=== PATIENT | female | born 1960 | race Caucasian/White ===

== ENCOUNTER 2024-08-26 08:24 | Outpatient (RCR) | payer BC, SELFPAY ==
--- NOTE | 2024-08-10 08:45 | RT.EKG_ITS ---
APPROVED REPORT Exam: Resting ECG Reason for Exam: cardiac rehab intake Patient Location: O HR:55 bpm ECG Measurements Heart Rate 55 AXIS DE 154 P 41 QRSd 84 QRS 9 QT 450 T 90 QTc 431 Conclusion Sinus rhythm...normal P axis, V-rate 50- 99 Probable left atrial enlargement...P >50mS, <-0.10mV V1 Low voltage, precordial leads...precordial leads <1.0mV Nonspecific T abnrm, anterolateral leads...T <-0.10mV, I aVL V2-V6
== END 2024-08-29 23:59 | disposition home or self-care (01) ==
LOC: CR 08:24
PROVIDERS: Visit Provider Internal Medicine Cardiovascular Disease
DX: I21.4 Non-ST elevation (NSTEMI) myocardial infarction (principal); Z51.89 Encounter for other specified aftercare
CPT/HCPCS: S9472

== ENCOUNTER 2024-09-28 08:06 | Outpatient (RCR) | payer BC, SELFPAY | END 2024-09-29 23:59 | disposition home or self-care (01) | LOC: CR 08:06 | PROVIDERS: PCP Nurse Practitioner Family; Visit Provider Internal Medicine Cardiovascular Disease | DX: I21.4 Non-ST elevation (NSTEMI) myocardial infarction (principal); Z51.89 Encounter for other specified aftercare | CPT/HCPCS: S9472 ==

== ENCOUNTER 2024-10-30 08:24 | Outpatient (RCR) | payer BC, SELFPAY | END 2024-10-30 23:59 | disposition home or self-care (01) | LOC: CR 08:24 | PROVIDERS: PCP Nurse Practitioner Family; Visit Provider Internal Medicine Cardiovascular Disease | DX: I21.A1 Myocardial infarction type 2 (principal); Z51.89 Encounter for other specified aftercare | CPT/HCPCS: S9472 ==

== ENCOUNTER 2024-11-03 00:24 | Outpatient (CLI) | payer BC, SELFPAY ==
--- NOTE | 2024-11-03 06:00 | DI.CTLCSR_ITS ---
Exam(s) CT CHEST LUNG CANCER SCREEN EXAM: CT CHEST LUNG CANCER SCREEN CLINICAL HISTORY: Screening for lung cancer,former tobacco use,z87.891 TECHNIQUE: Imaging Protocol: Axial computed tomography images with coronal and sagittal reformatted images were created and reviewed. Low dose screening protocol. COMPARISON: No exams were available for comparison FINDINGS: Tracheobronchial tree: No bronchiectasis or mucus plugging. Mediastinum and Rachelle: No dominant adenopathy or fluid collection. Pulmonary parenchyma: No consolidation or dominant measurable mass. Mild emphysematous changes at the lung apices. Apical scarring. No significant interstitial changes. Lung Nodules: None. Pleura: No effusion. No pneumothorax. Heart: The heart is not dilated. No coronary artery calcifications are seen. No pericardial effusion. Aorta: Thoracic aorta non-dilated. Upper abdomen: Unremarkable. Bones: Unremarkable for age. Soft Tissues: Unremarkable. IMPRESSION: No suspicious pulmonary nodules. Lung RADS Cat 1 - Negative: No nodules and definitely benign nodules Lung-RADS 1.0 CATEGORIES: Category 0 - Prior chest CT exam(s) being located for comparison. Category 1 - Annual screening in 12 months. No nodules or definitely benign nodules. Category 2 - Annual screening in 12 months. Benign appearance. Nodules with low likelihood of becomin g active cancer. Category 3 - 6-month follow-up. Probably benign. Short-term follow-up suggested. Nodules with low lik elihood of becoming active cancer. Category 4A - 3-month follow-up and CT/PET if >8 mm in size. Suspicious finding. Findings which requi re additional testing. Category 4B - Findings which require additional testing and tissue sampling. Category 4X - Category 3 or 4 nodules with additional features or imaging findings that increases the suspicion of malignancy. Modifier S- Potentially clinically significant findings (non lung cancer) RADIATION DOSE DELIVERED: !Error Total DLP DATA REPOSITORY: All CT scans at this facility are submitted to the National Radiology Data Registry (NRDR) Dose Index Registry (DIR) with the [employer] (ACR). RADIATION OPTIMIZATION: All CT scans at this facility use at least one of these dose optimization te chniques: automated exposure control; mA and/or kV adjustment per patient size (includes targeted exa ms where dose is matched to clinical indication); or iterative reconstruction.
--- NOTE | 2024-11-03 06:00 | DI.MAMMO_ITS ---
Exam(s) MAMMO SCREENING EXAM: MAMMO SCREENING CLINICAL HISTORY: screening,z12.39 TECHNIQUE: Mammograms were interpreted according to the usual protocol including computer analysis w [email or web address] CAD system, tomosynthesis and C-view imaging. COMPARISON: 2015 through 2022 FINDINGS: The breasts are composed of heterogeneously dense fibroglandular densities, Breast Density category C . No suspicious masses or suspicious microcalcifications are seen. No skin thickening or abnormal axillary lymph nodes are seen. There has been no significant change from prior exams. IMPRESSION: BI-RADS Category 1, Negative mammogram. Yearly screening mammography is recommended. Breast Density Category C, heterogeneously Dense. The mammogram demonstrates the patient's breast tissue is dense. Dense breast tissue is very common a nd is not abnormal but dense breast tissue can make it harder to find cancer on a mammogram. Also, de nse breast tissue may increase breast cancer risk. This information about the result of the mammogram report was provided to the patient to raise their awareness. Use this report when you speak with the patient about their risks for breast cancer, which includes their family history. At that time, you may recommend additional screening tests (Ultrasound or MRI) as they might be useful based on their r isk. A negative radiographic report should not delay biopsy if a dominant or clinically suspicious mass is present. Up to ten percent of cancers are not identified on mammography. A negative report may reinforce clinical impression. Adenosis and dense breasts may obscure an underlying neoplasm. False positive reports average 6 to 10%.
== END 2024-11-03 00:44 ==
PROVIDERS: PCP Nurse Practitioner Family; Visit Provider Nurse Practitioner Family
DX: Z12.31 Encounter for screening mammogram for malignant neoplasm of breast (principal); Z87.891 Personal history of nicotine dependence; R92.333 Mammographic heterogeneous density, bilateral breasts
CPT/HCPCS: 71271; 77063; 77067

== ENCOUNTER 2024-11-25 08:10 | Outpatient (RCR) | payer BC, SELFPAY | END 2024-11-27 23:59 | disposition home or self-care (01) | LOC: CR 08:10 | PROVIDERS: PCP Nurse Practitioner Family; Visit Provider Internal Medicine Cardiovascular Disease | DX: I21.A1 Myocardial infarction type 2 (principal); Z51.89 Encounter for other specified aftercare | CPT/HCPCS: S9472 ==

== ENCOUNTER 2024-11-26 03:03 | Outpatient (CLI) | payer BC, SELFPAY ==
[2024-11-26 12:52] LABS: ALT 29 U/L (14-59); AST 20 U/L (15-37); Albumin 4.2 g/dL (3.4-5.0); Alkaline Phosphatase 100 U/L (46-116); Anion Gap 6.4 mmol/L (3-11); BUN 15 mg/dL (7-18); Bilirubin, Total 0.51 mg/dL (0.2-1.0); CO2 28.6 mmol/L (21.0-32.0); CREATININE 0.7 mg/dL (0.55-1.02); Calcium 9.3 mg/dL (8.5-10.1); Calculated LDL 91 mg/dL (<100); Chloride 106 mmol/L (98-107); Cholesterol 177 mg/dL (<200); Estimated GFR 97.72 (mL/min/1.73m2); Glucose 99 mg/dL (74-106); HDL Cholesterol 68 mg/dL (40-60); Potassium 3.9 mmol/L (3.5-5.1); Sodium 141 mmol/L (136-145); Total Protein 7.5 g/dL (6.4-8.2); Triglyceride 92 mg/dL (<150)
[2024-11-27 11:55] LABS: HIV-1/2 Ag & Ab Screen Negative (Negative)
[2024-11-27 12:09] LABS: Hepatitis C Ab w Rflx HCV PCR Negative (Negative)
[2024-11-27 12:16] LABS: HBs Antibody, Quant <3.1 mIU/mL (See Note); Hep B Surface Ab Negative (See Note); Hepatitis B Core Antibody Negative (Negative); Hepatitis B Surface Antigen Negative (Negative)
== END 2024-11-26 03:04 | disposition home or self-care (01) ==
LOC: LOS 03:04
PROVIDERS: PCP Nurse Practitioner Family; Visit Provider Nurse Practitioner Family
DX: Z11.59 Encounter for screening for other viral diseases (principal); E78.5 Hyperlipidemia, unspecified; Z11.4 Encounter for screening for human immunodeficiency virus [HIV]
CPT/HCPCS: 36415; 80053; 80061; 86704; 86706; 86803; 87340; 87389

== ENCOUNTER 2024-12-09 08:04 | Outpatient (RCR) | payer BC, SELFPAY | END 2024-12-28 23:59 | disposition home or self-care (01) | LOC: CR 08:04 | PROVIDERS: PCP Nurse Practitioner Family; Visit Provider Internal Medicine Cardiovascular Disease | DX: I21.A1 Myocardial infarction type 2 (principal); Z51.89 Encounter for other specified aftercare | CPT/HCPCS: S9472 ==

== ENCOUNTER 2025-02-08 07:39 | Day surgery (SDC) | payer BC, SELFPAY ==
--- NOTE | 2025-02-07 07:57 | W.PM.DSUDISC ---
Date of service: 02/08/25 Discharge Plan Disposition Patient Disposition: Home Condition: Good Discharge Details Reason For Visit: screening colonoscopy Attending Provider: Irwin Aguilar Primary Care Provider: Rika Romero Home Meds and New Rx's Prescriptions: New tramadol 50 mg tablet 50 mg PO BID PRNQty: 9 0RF Rx Instructions: Take 1 tablet by mouth up to twice a day if needed for pain. Continued nitroglycerin 0.4 mg tablet, sublingual 0.4 mg sublingual Q5M PRN Rx Instructions: do not exceed 3 doses per episode atorvastatin 40 mg tablet 40 mg PO DAILY Qty: 90 3RF bupropion HCl 150 mg tablet extended release 24 hr 150 mg PO QAM Qty: 90 3RF metoprolol succinate 25 mg tablet extended release 24 hr 25 mg PO DAILY Qty: 90 3RF sertraline 100 mg tablet 100 mg PO DAILY Qty: 90 3RF Discontinued bisacodyl 5 mg tablet,delayed release (DR/EC) 5 mg PO ONCE Qty: 4 0RF Rx Instructions: Per Colonoscopy bowel prep instructions polyethylene glycol 3350 17 gram/dose powder 238 g PO ONCE Qty: 238 0RF Rx Instructions: For Colonoscopy bowel prep, as directed by office Discharge Instructions Instructions: Colon polyps, Hemorrhoid Banding, Diverticulosis Additional Instructions: Marnie I hope you make a quick recovery from the procedure, and they feel well today. I did find, and remove 1 single polyp today. This will be sent off for testing, similar to your previous experience. Once I know the nature of this polyp, I will be in a better position to offer recommendations for future colonoscopies. I also banded 2 of the 3 hemorrhoid columns today. Although banding is generally well-tolerated, sometimes it can be painful. I did prescription for some pain medications if you need it. I also recommend alternating Tylenol and ibuprofen for about 48 hours or so. Many patients also find comfort with topical agents such as Preparation H, or hemorrhoid suppositories. The bands themselves will cause the hemorrhoid blood vessels to clot, and eventually fall off with bowel movements. It is quite common to have some blood with the stools, especially at the time that the bands shed. This is usually described as sometime between 5 and 15 days. Using an wgkq-wdi-swdlcek stool softener over the next week or 2 may also provide some comfort. If you need anything, or have any questions at all, please do not hesitate to call, otherwise we will be in touch once the polyp report is available. 1. If tolerated, consume a soft, low fiber diet for 1-2 days. 2[address] Do not drive, drink alcohol, operate machinery, make critical decisions, or do activities that require coordination or balance for 24 hours. 3. Because air was put into your colon during the procedure, expelling air from your rectum (passing gas or farting) is normal. 4. You may not have a bowel movement for 1-3 days because of the colonoscopy prep. This is normal. 5. Go directly to the emergency room if you notice any of the following: Develop chills (warm to touch), or if you have a thermometer and your temperature is above 101 Difficulty breathing or difficultly swallowing Persistent vomiting Severe abdominal pain, other than gas cramps Severe chest pain Black, tarry stools Any bleeding ? exceeding one tablespoon 6. Call your physician if the site where your intravenous was started becomes red, swollen, painful, and warm to touch. 7. Your physician has reviewed your pre-procedure medications. Please continue to take those medications as previously ordered. You will be given specific information/education regarding any changes to your medications before leaving. Activity:: Activity as Tolerated Diet:: As Tolerated Discharge Orders Discharge Orders: Discharge Order (Routine); Ordered 02/07/25 Ordered By: Irwin Aguilar DS: Diagnosis Discharge Diagnosis (1) Encounter for screening colonoscopy: Status: Acute Asessment and Plan: Follow-up on polypectomy results
--- NOTE | 2025-02-07 07:58 | W.COLOREPORT ---
Date of service: 02/08/25 Time of Service: 09:30 Colonoscopy Report Date of procedure: 02/08/25 Pre-op diagnosis general: screening colonoscopy Post-op diagnosis procedure note: other (Internal hemorrhoids, diverticulosis, colon polyps) Procedure: colonoscopy Surgeon: Irwin Aguilar Anesthesia Type: General:No Airway Estimated blood loss (mL): 5 Pathology: other (0.5 cm flat polyp in the ascending colon) Complications: None Disposition: same day Indications: Marnie is a 64 year old woman with a history of adenomatous polyps. She needs her next screening colonoscopy Prep: Miralax/Dulcolax Procedure Start Time: 08:59 Procedure End Time: 09:20 Retraction Time: 13 Findings: Internal hemorrhoids, sigmoid diverticulosis, 0.5 cm flat ascending colon polyp Procedure Description: After the induction of monitored anesthetic care, and with Marnie in left lateral decubitus position, I began by performing an external anorectal exam.? Perineum and skin were normal, as was the anal verge.? This appeared normal next, I performed a digital rectal exam.? I did not appreciate any abnormal findings.? Next, I advanced a colonoscope into the rectal vault.? I performed retroflexion.? There are internal hemorrhoids in all 3 columns.? Using irrigation, I then advanced the colonoscope beyond the rectal folds and into the sigmoid colon before advancing towards the cecum.?The scope was noted to be in the cecum by identification of the ileocecal valve and appendiceal orifice.? I then began withdrawing the colonoscope using repeated irrigation as necessary for full evaluation of the colonic mucosa. ?Within the ascending colon was a 0.5 cm flat polyp. This was removed with cold snare polypectomy. There was minimal bleeding. Excision was complete. There is sigmoid diverticulosis. Once the scope was withdrawn to the level of the rectum, great care was taken to examine portions of the rectal folds.? The colonoscope was then removed, and using lighted anoscopy, I examined the anal column and internal hemorrhoid complexes. There are hemorrhoids involving all 3 columns, but the dominant hemorrhoids appear to involve the right posterior and left lateral columns. Suction band ligation was performed here. She tolerated the procedure well. The findings and instructions were shared with the patient prior to discharge. [place] Bowel Prep [place] Bowel Prep Right Colon: 3 Left Colon: 2 Transverse Colon: 3 Total Score: 8
--- NOTE | 2025-02-07 18:02 | W.ANESPRE ---
General Info Date of Service Date Performed: 02/08/25 Height: 5 ft 2.75 in Weight: 68.039 kg Body Mass Index (BMI): 26.7 Surgical Procedure: Operation Date: 02/08/25 09:05 Proposed Procedure Side Surgeon p Colonoscopy, possible hemorrhoid banding Irwin Aguilar MD Meds Allergies and Home Medications Allergies Allergy/AdvReac Type Severity Reaction Status Date / Time Penicillins Allergy Mild Swelling/Ed Verified 02/08/25 08:09 sascha Home Medication ?Medication ?Instructions ?Recorded atorvastatin 40 mg tablet 40 mg PO DAILY #90 tabs 10/09/24 bupropion HCl 150 mg 24 hr tablet, 150 mg PO QAM #90 tabs 10/09/24 extended release metoprolol succinate 25 mg 25 mg PO DAILY #90 tabs 10/09/24 tablet,extended release 24 hr nitroglycerin 0.4 mg sublingual 0.4 mg sublingual Q5M PRN 10/09/24 tablet sertraline 100 mg tablet 100 mg PO DAILY #90 tabs 10/09/24 Current Visit Medications: Current Medications Generic Name Dose Route Start Last Admin Trade Name Freq PRN Reason Stop Dose Admin Ringer's Solution 1,000 mls @ 80 mls/hr 02/08/25 06:00 IV 03/07/25 23:59 [facility] IV Miscellaneous Supplies 1 each 02/08/25 06:00 Iv Access IV 03/07/25 23:59 DIRECTED PAULO Ondansetron HCl 4 mg 02/07/25 07:59 Ondansetron 4 Mg/2 Ml Vial IVP 03/09/25 07:58 Q4H PRN PRN Nausea / Vomiting Sodium Chloride 0 ml 02/08/25 06:00 Normal Saline Flush 10 Ml Syr IV 03/07/25 23:59 PRN PRN Sodium Chloride 0 ml 02/08/25 06:00 Normal Saline 10 Ml Vial IJ 03/07/25 23:59 DIRECTED PRN Sterile Water 0 ml 02/08/25 06:00 Water,Injection,Sterile 10 Ml Vial IJ 03/07/25 23:59 DIRECTED PRN PFSH Active Problems Active Problems: Problem Status Onset Code Encounter for screening colonoscopy Acute Z12.11 GERD (gastroesophageal reflux disease) Chronic K21.9 Asthma Chronic J45.909 Stress-induced cardiomyopathy Chronic I51.81 Hyperlipidemia Chronic E78.5 Major depressive disorder Chronic F32.9 Former cigarette smoker Chronic Z87.891 Diverticulosis of colon Chronic K57.30 Medical History Medical History (Updated 02/07/25 @ 07:57 by Irwin Aguilar MD) Serrated adenoma of colon 2019 colonoscopy Tubular adenoma of colon 2019 colonoscopy Microscopic hematuria NSTEMI (non-ST elevated myocardial infarction) (06/2024) Tobacco Smoking/Tobacco Use Status: Former Tobacco Use Passive smoking exposure: No Alcohol Alcohol Intake: current Alcohol intake frequency: holidays/special occasions only Alcohol type: beer and wine Details: 07/23/24 previous quit date Substance Use Substance use: Current Sobriety Substance use type: former substance user and marijuana Vital Signs and Lab Results Vital Signs Most Recent Vital Signs in EMR: Temp Pulse Resp BP Pulse Ox 36.2 C L 53 L 16 115/60 96 02/08/25 08:12 02/08/25 08:12 02/08/25 08:12 02/08/25 08:12 02/08/25 08:12 Lab Results Blood Type / Crossmatch: No Data to Display Complete Blood Count: No Data to Display Complete Metabolic Panel: No Data to Display Liver Function Panel: No Data to Display Coagulation Panel: No Data to Display Cardiac Panel: No Data to Display Arterial Blood Gas: No Data to Display Venous Blood Gas: No Data to Display Pancreas Panel: No Data to Display Thyroid Panel: No Data to Display Infectious Disease: No Data to Display Blood Cultures: No Data to Display Toxicology Panel: No Data to Display Anesthesia Assessment and Plan Anesthesia History Personal History: PONV and Awareness Under Anesthesia Family History: No Family History of Anesthesia Complications Exercise Tolerance Exercise Tolerance: Metabolic Equivalents>4 Cardiac & Pulmonary Exam Cardiac Exam: Normal S1/S2 Heart Sounds Pulmonary Exam: Clear Bilateral Breath Sounds Implantable Cardiac Device Does patient have a Pacemaker or an ICD?: No Airway Exam Known Difficult Airway: No Mallampati Class: 4 Mouth Opening: Narrow (< 3cm) Thyromental Distance: Less than 3 cm Neck Range of Motion: Full ROM Neck Circumference: Normal Teeth Condition: Normal Dentition ASA Classification ASA Score: ASA 2 Emergency Case?: No NPO Status NPO Status: NPO Clears >2 hours, Solids >8 hours Anesthesia Plan Resuscitation Status: Full Code Anesthesia Technique: General Anesthesia Airway Planned: Natural Airway Monitors Used: Standard Monitors Preoperative Comments:: 64 yo female for colo. Sig PMHx: stress induced cardiomyopathy (EF 12%, recovered in a few days. metoprolol. no issues since, unknown cause), asthma (no issues in a while), gerd (no longer on meds), depression. ECHO: LVEF 63 %, no sig valve issues.
[2025-02-08 08:12] VITALS: BP 115/60; PULSE 53; RESP 16; TEMP 36.2; O2SAT 96
[2025-02-08 08:25] VITALS: BMI 26.7
[2025-02-08] MEDS: Lactated Ringers 1,000 ML 80 ML IV (08:28)
--- NOTE | 2025-02-08 09:10 | BOWEL_PTH ---
PATIENT: Marnie Lechuga LOC: [facility] U#:[id number] AGE/SX: 64/F ROOM: RE02/08/[address]: Irwin Aguilar MD : 1960 BED: DIS: 02/08/2025 SPEC #: [id number] RECD: 02/08/25 12:43 STATUS: JEWELS REQ #: [id number] MIRNA: 02/08/25 09:[address]: Irwin Aguilar DEPT: Surgical Specimen RECD BY: Rain Delvalle ENTERED: 02/08/25 12:44 SP TYPE: Bowel OTHR DR: Rika Romero, MARION Tissues: 1 - BIOPSY BOWEL Procedures: GROSS AND MICRO LEVEL 4 Comments: [id number]
[2025-02-08 09:27] VITALS: BP 98/57; PULSE 49; RESP 16; TEMP 36.2; O2SAT 98
--- NOTE | 2025-02-08 09:55 | W.ANESPOSTOP ---
Postoperative Evaluation Date, Time and Location Date Performed: 02/08/25 Time Performed: : Patient Location: Day [facility] Unit Vital Signs Most Recent Imported Vital Signs: Most Recent Vital Signs Temp Pulse Resp BP Pulse Ox 36.2 C L 49 L 16 98/57 L 98 02/08/25 09:27 02/08/25 09:27 02/08/25 09:27 02/08/25 09:27 02/08/25 09:27 Pain Score Most Recent Pain Score: Most Recent Pain Score Pain Level 0 02/08/25 09:27 Assessment Mental Status: Awake (Alert & Oriented to Patient Baseline) Airway and Respiratory Function: Patent airway with normal (patient baseline) respiratory exam Cardiovascular Function: Hemodynamically Stable Hydration Status: Adequately Hydrated Nausea & Vomiting: No Nausea or Vomiting Pain: Pt. Denies Any Pain Peripheral Nerve Block: Patient did not receive a nerve block
[2025-02-08 09:56] VITALS: BP 113/67; PULSE 50; RESP 14; TEMP 36.3; O2SAT 99
== END 2025-02-08 10:08 | disposition home or self-care (01) ==
LOC: SUR 07:39
PROVIDERS: PCP Nurse Practitioner Family; Visit Provider Surgery
PROC: 0DJD8ZZ Inspection of Lower Intestinal Tract, Via Natural or Artificial Opening Endoscopic (ICD-10-PCS; CPT 45378; principal; 2025-02-08 09:00)
DX: Z12.11 Encounter for screening for malignant neoplasm of colon (principal); Z86.0101 Personal history of adenomatous and serrated colon polyps; K64.8 Other hemorrhoids; K63.5 Polyp of colon; K57.30 Diverticulosis of large intestine without perforation or abscess without bleeding
CPT/HCPCS: 45385; 88305; J2405; J2704

== ENCOUNTER 2025-05-06 14:44 | Outpatient (REF) | payer BC, SELFPAY ==
--- NOTE | 2025-05-06 08:50 | PAPFT_PTH ---
PATIENT: Marnie Lechuga LOC: [facility] U#:[id number] AGE/SX: 64/F ROOM: RE05/06/[address]: MARION Resendez : 1960 BED: DIS: 05/06/2025 SPEC #: [id number] RECD: 05/06/25 17:50 STATUS: JEWELS REQ #: [id number] MIRNA: 05/06/25 08:[address]: Rika Romero DEPT: [facility] Cytology RECD BY: Rain Delvalle Tissues: 1 - CX/ENDOCX FOR PAP SMEARS Procedures: PAP THIN PREP/[facility] Screening HPV DNA PROBE Comments: [id number] (HPV 16 & 18/45)
== END 2025-05-06 14:45 | disposition home or self-care (01) ==
LOC: LBN 14:44
PROVIDERS: PCP Nurse Practitioner Family; Visit Provider Nurse Practitioner Family
DX: Z12.4 Encounter for screening for malignant neoplasm of cervix (principal)
CPT/HCPCS: 88142; 87624

== ENCOUNTER 2025-06-23 17:22 | Outpatient (REF) | payer BC, SELFPAY | END 2025-06-23 17:23 | disposition home or self-care (01) | LOC: LBN 17:22 | PROVIDERS: PCP Nurse Practitioner Family; Visit Provider Physician Assistant | DX: J02.9 Acute pharyngitis, unspecified (principal) | CPT/HCPCS: 87070 ==